=== PATIENT | female | born 1985 | race Caucasian/White ===

== ENCOUNTER → 2017-02-01 00:31 | Observation (INO) ==
[2017-01-31 23:43] LABS: Bilirubin,Urine Small (Negative); Blood,Urine Negative (Negative); Clarity,Urine Cloudy (Clear); Color,Urine Dark Yellow (Yellow); Glucose,Urine (UA) Normal (Normal); Ketones,Urine Negative (Negative); Leukocyte Esterase,Urine Trace (Negative); Nitrite,Urine Negative (Negative); Protein,Urine Negative (Neg-Trace); Specific Gravity,Urine 1.027 (1.010-1.025); Urobilinogen,Urine Normal (Normal)
[2017-01-31 23:45] LABS: Bacteria,Urine Moderate per hpf (None-Few); Hyaline Casts,Urine None Seen per lpf (None-Few); Squamous Epithelial Cell,Urine Many per lpf (None-Few)
[2017-01-31 23:53] LABS: Transitional Epi Cells,Urine Few per hpf (None-Few); Triple Phosphate Crystal,Urine Present
--- NOTE | 2017-02-01 00:44 | OB/GYN History & Physical ---
Date of Encounter: 02/01/17 Time of Encounter: 22:55 Assessment and Plan (1) 35 weeks gestation of Status: Chronic The pt has had a reassuring and reactive FHT and receiving appropriate care. Vitals signs remained within normal limits during hospitalization No Nausea/Vomiting. Able to tolerate liquids History of Present Illness HPI: Ms. Rodriguez is a 31 year old female at 35 weeks and 6 days with an EDC of 03/01/2017 who presents for "tightening" sensation in upper abdomen and concern for movement. She has had care at [facility] with Dr. Heaton. Her has been marked with nausea, vomiting. Pt was diagnosed with pruritic urticarial papules and plaques of at ~25 wga, which resolved with topical steroid treatment. Pt endorses occasional, transient headaches at 6-7/10 relieved by Extra strength Tylenol. Endorses subjective fever prior to admission. She denies any vaginal bleeding. Denies any foul-smelling fluid loss. Her blood type is A+, rubella immune, Varicella IgG Ab positive, GBS will be pending in next scheduled visit this week. Past Med Surg Social Fam HX - Past Medical History Source: patient (Previous Vaginal Delivery at 41 wga. ) Medical history: asthma Psychiatric history: no psych history - Past Surgical History Surgical History: no surgical history - Social History Smoking Status: Former smoker Smokeless Tobacco Status: No Alcohol use: none Drug use: none Obstetrical History - Pregnancies : 2 Para: 1 Term: 1 : 0 Ab's: 0 Livin Medications and Allergies Pnv No.115/Iron Fumarate/FA [ 19 Chewable Tablet] 1 tab PO DAILY [History] Cephalexin [Keflex] 1,000 mg PO BID #20 capsule 02/01/17 [Rx] Allergies No Known Allergies Allergy (Verified 01/31/17 23:13) Review of System OB - Constitutional Constitutional ROS IM: fatigue, weight gain, no anorexia, no chills - Nose, mouth, and throat Nose, mouth and throat: headache(s) - Respiratory Respiratory: dyspnea - Menstruation Menstruation: as per HPI, other - Muscloskeletal Musculoskeletal: back pain - Integumentary Integumentary: pruritus (resolves ), rash, striae Exam - Vital Signs Vital signs: T: 98 BP: 123/77 Pulse 88 RR: 14 - Constitutional Constitutional: well developed, well nourished, no acute distress - HEENT HEENT: EOMI, Normocephaly - Neck Neck exam: full ROM, normal inspection - Lungs Respiratory exam: CTAB - Cardiovascular Cardiovascular exam: RRR - Abdomen Abdomen: Present: bowel sounds normal, gravid. Absent: non tender, diffuse tenderness - Extremities Deep Tendon Reflex Grade: 2+ Normal - Comments Comments: Lower Extremities: Dorsalis pedis palpable and symmetrical bilaterally. No calf tenderness. No pitting edema. Cervical Assessment: Fingertip/T/H, performed by RN Results NST reasurring and reactive. Abnormal lab results Urine Clarity Cloudy (Clear) A 01/31/17 23:30 Ur Specific [place] 1.027 (1.010-1.025) H 01/31/17 23:30 Urine Bilirubin Small (Negative) H 01/31/17 23:30 Ur Leukocyte Esterase Trace (Negative) H 01/31/17 23:30 Urine Microscopic WBC 5-15 per hpf (0-3) H 01/31/17 23:30 Ur Squamous Epith Cells Many per lpf (None-Few) H 01/31/17 23:30 Urine Bacteria Moderate per hpf (None-Few) H 01/31/17 23:30 Ur Culture Indicated? YES (NO) A 01/31/17 23:30 All other labs normal.
--- NOTE | 2017-02-01 01:25 | Discharge Summary ---
Date of Encounter: 02/01/17 Time of Encounter: 12:29 - Discharge Diagnosis (1) 35 weeks gestation of Priority: Primary Status: Chronic Comments: NST reassuring and reactive Cervical assessment performed by RN: F/T/H Pt able to tolerate fluids while in admit, no N/V Repeat Vitals within normal limits (2) UTI (urinary tract infection) during Priority: Primary Status: Acute Comments: Urinalysis indicative of relative dehydration Pt received extensive counseling on importance of keeping hydrated Verbally confirmed understanding. Stated she would increase water intake +LE. Triple phosphate crystals may be normal but may also indicate of UTI, beatrice Proteus species Pt on Kephelex Qualifiers: Trimester: third trimester Qualified Code(s): O23.43 - Unspecified infection of urinary tract in , third trimester - Discharge Medications Prescriptions: Cephalexin [Keflex] 1,000 mg PO BID #20 capsule Home Medications: Pnv No.115/Iron Fumarate/FA [ 19 Chewable Tablet] 1 tab PO DAILY [History] Cephalexin [Keflex] 1,000 mg PO BID #20 capsule 02/01/17 [Rx] Allergies/Adverse Reactions: Allergies No Known Allergies Allergy (Verified 01/31/17 23:13) Data Procedures and tests throughout hospitalization: Laboratory Tests 01/31/17 23:30 Urine Color Dark Yellow Urine Clarity Cloudy A Urine pH 6.0 Ur Specific [place] 1.027 H Urine Protein Negative Urine Glucose (UA) Normal Urine Ketones Negative Urine Blood Negative Urine Nitrite Negative Urine Bilirubin Small H Urine Urobilinogen Normal Ur Leukocyte Esterase Trace H Urine Microscopic WBC 5-15 H Ur Squamous Epith Cells Many H Ur Transition Epith Cell Few Triple Phos Crystals Present Urine Bacteria Moderate H Hyaline Casts None Seen Ur Culture Indicated? YES A Labs on day of discharge: Labs from last 24 hours 01/31/17 23:30 Urine Color Dark Yellow Urine Clarity Cloudy A Urine pH 6.0 Ur Specific [place] 1.027 H Urine Protein Negative Urine Glucose (UA) Normal Urine Ketones Negative Urine Blood Negative Urine Nitrite Negative Urine Bilirubin Small H Urine Urobilinogen Normal Ur Leukocyte Esterase Trace H Urine Microscopic WBC 5-15 H Ur Squamous Epith Cells Many H Ur Transition Epith Cell Few Triple Phos Crystals Present Urine Bacteria Moderate H Hyaline Casts None Seen Ur Culture Indicated? YES A Date of admission: 01/31/17 22:51 Primary care physician: PCP NO Discharging clinician: Veronica Pinedo Anticipated date of discharge: 02/01/17 - Patient Status Disposition: Home, Self-Care Condition: Good Overall status at discharge: other - Discharge Instructions Follow Up With: NO,PCP [Primary Care Provider] - Additional Instructions: LABOR AND DELIVERY DISCHARGE INSTRUCTIONS Signs and Symptoms to be Reported to your Doctor Immediately: * Sudden gush, continuous or intermittent lead of fluid from vagina (note the time of gush and color of fluid) * Onset of bright red vaginal bleeding with or without pain (if you had a vaginal exam during this visit you may notice some dark red spotting. This is normal.) * Lower abdominal cramping or backache that is premenstrual-like feeling. * More than 6 contractions in one hour. * Burning during urination, having to urinate more frequently or pain in your mid-back. * A change in the baby's activity. This could be an increase or decrease in activity. * Severe headache which does not go away with tylenol. * Sudden swelling in the face, hands, arms and/or legs. * Upper abdominal pain - sometimes associated with heartburn or nausea and is not relieved by Maalox, Mylanta or Tums. * Dizziness or blurred vision or visual disturbances (seeing stars/lights). * Kick Counts One hour after a meal, lay down on one side in a quiet place. Count the number of geoffrey the baby moves during an hour. If less than 6 movements, notify your physician. Diet: *Force fluids - 8-10 tall glasses of fluid per day. May include popsicles and jello. 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 NST reactive and reassuring. Time Attestation: Total time spent providing and/or coordinating discharge services: Time Spent: Greater than 30 minutes Specific discharge activities: Kick count, Labor warnings Exam - Constitutional Vitals: T: 98.3 BP: 129/72 Pulse: 87 General appearance IM: cooperative, A&O X 3, pleasant - Respiratory Respiratory exam: Present: CTAB. Absent: accessory muscle use, chest wall tenderness, wheezes - Cardiovascular Cardiovascular exam IM: Present: RRR - GI/Abdominal GI/Abdominal exam IM: soft, no peritoneal signs Additional comments: Evenly distributed Erythematous papules. [place] monitor in place. - Rectal Rectal exam: deferred - Extremities Exam Extremities exam IM: Present: normal inspection. Absent: mottling - Neurological Exam Neurological exam: alert, oriented X3 - VTE Reasons for not Prescribing Prophylaxis: Treatment not Indicated - Low risk for VTE - Attending Attestation I examined this patient and my medical decision-making was reviewed with the HEEL SLUGGER/PA/Advanced Practice Nurse/Resident Physician. I agree with the documented findings, disposition and treatment plan as described except to the extent set forth below.
== END | disposition home or self-care (01) ==
LOC: 1NENULAB
PROVIDERS: ADMIT Obstetrics & Gynecology; ATTEND Obstetrics & Gynecology

== ENCOUNTER 2017-02-23 09:34 | Inpatient (IN) ==
[2017-02-23] MEDS ORDERED: Famotidine 20 MG/2 ML VIAL IVP PRN (09:46)
[2017-02-23] MEDS ORDERED: Ondansetron 4 MG/2 ML VIAL IVP PRN (09:46)
[2017-02-23] MEDS ORDERED: Metoclopramide 10 MG/2 ML VIAL IVP PRN (09:46)
[2017-02-23] MEDS ORDERED: Naloxone 0.4 MG/ML INJ IVP PRN (09:46)
[2017-02-23] MEDS ORDERED: Ringers Solution, Lactated 1,000 ML IVC SCH (10:00)
[2017-02-23 10:19] LABS: Basophils % 0.1 %; Eosinophils # 0.1 K/mcL (0.0-0.6); Eosinophils % 0.8 %; Hematocrit 35.4 % (35.3-44.9); Hemoglobin 12.2 g/dL (11.5-15.4); Immature Granulocytes % 0.3 % (0-4); Lymphocytes # 1.5 K/mcL (0.6-4.6); Lymphocytes % 20.9 %; Mean Corpuscular HGB Conc 34.5 g/dL (31.6-35.5); Mean Corpuscular Hemoglobin 33.1 pg (28.0-33.3); Mean Corpuscular Volume 95.9 fL (83.0-100.0); Mean Platelet Volume 9.5 fL (9.4-12.4); Monocytes # 0.4 K/mcL (0.0-1.3); Monocytes % 5.3 %; Neutrophils # 5.4 K/mcL (1.6-8.9); Platelet Count 239 K/mcL (140-400); Red Blood Count 3.69 M/mcL (3.82-4.97); Red Cell Distribution Width 13.1 % (11.5-14.5); Segmented Neutrophils % 72.6 %
[2017-02-23] MEDS ORDERED: miSOPROStol 100 MCG TABLET PO STA (10:39)
--- NOTE | 2017-02-23 10:58 | Anesthesia Evaluation PreOp ---
Date of Encounter: 02/23/17 Time of Encounter: 10:56 - Past History Planned Operation: madelyn Cardiac History: Denies any Significant Hx Pulmonary History: Asthma RIVET SPINNER History: Denies Any Significant HX Other Medical History: GERD Anesthesia History: No Prior Anesthetic Complications, Past Anesthesia (madelyn), Problems (negative) : Yes Alcohol Use: none Drug use: none Medications and Allergies Pnv No.115/Iron Fumarate/FA [ 19 Chewable Tablet] 1 tab PO DAILY [History] Allergies No Known Allergies Allergy (Verified 01/31/17 23:13) - Meds/Allergy Pre-op Review Medications Reviewed: Yes Allergies Reviewed: Yes Beta Blockers on Current Med List: No Anesthesia Results - Labs 02/23/17 10:14 Anesthesia Exam 117/76 104 16 fht 141 Height: 5'1" Weight: 96 kg Pain Scale: 2 Pain Scale Used: Numeric (1 - 10) - HEENT Pupil (Motor): Pupils equal Mallampati: II Oral Opening: Greater than 3 - RIVET SPINNER LOC: Oriented RIVET SPINNER Motor: Normal RUE, Normal LUE, Normal RLE, Normal LLE, Normal Face RIVET SPINNER Sensory: Normal: RUE, LUE, RLE, LLE, Face - Cardiac Rhythm: Regular Murmur: None - Pulmonary Breath Sounds: bilateral Clear Respiratory Effort: Symmetrical Anesthesia Assess/Plan ASA Score: 2 Modified Boyers Scale for Level of Consciousness: Cooperative, oriented, and tranquil Anesthetic Plan: Regional Autologous Blood: No Monitoring Plan: Standard Monitors Recovery Plan: Other (MADELYN risks discussed, questions answered, consented)
--- NOTE | 2017-02-23 13:59 | OB/GYN History & Physical ---
Date of Encounter: 02/23/17 Time of Encounter: 13:53 Assessment and Plan (1) Elective induction of labor planned Current visit: Yes Status: Acute oral cytotec nubain prn epidural if desired anticipate vaginal delivery (2) 39 weeks gestation of Current visit: Yes Status: Acute History of Present Illness Chief complaint: induction of labor HPI: Ms. Rodriguez is a 31 year old female at 39.1 weeks of labor here today for elective induction of labor. She has had no complications. Denies vaginal bleeding, loss of fluid, blurred vision, headache, diarrhea, constipation. She has had nausea and emesis on and off throughout her ; last emesis this morning. Labs: negative: GBS, Hep B, HIV, syphilis immune: Rubella, VZV Past Med Surg Social Fam HX - Past Medical History Medical history: asthma Psychiatric history: no psych history - Past Surgical History Surgical History: no surgical history - Social History Smoking Status: Never smoker Smokeless Tobacco Status: No Alcohol use: none Drug use: none - Family History Mother Living Status: Still Living Hx Family Cardiac Disorders: No Hx Family Respiratory Disorders: No Hx Family Cancer: No Hx Family GI Disorders: No Hx Family Genitourinary Disorders: No Hx Family Endocrine Disorder: No Hx Family Musculoskeletal Disorders: No Hx Family Neuromuscular Disorders: No Hx Family Neurologic Disorders: No Hx Family HEENT Disorders: No Hx Family Autoimmune Disorders: No Hx Family Reproductive Disorders: No Hx Family Psychosocial Disorders: No Hx Family Medical Disorders: No Obstetrical History - Pregnancies : 2 Para: 1 Term: 0 : 0 Ab's: 0 Livin Medications and Allergies Pnv No.115/Iron Fumarate/FA [ 19 Chewable Tablet] 1 tab PO DAILY [History] Allergies No Known Allergies Allergy (Verified 01/31/17 23:13) Review of System OB - Constitutional Constitutional ROS IM: as per HPI Exam - Constitutional Constitutional: well developed, well nourished, no acute distress, average body habitus - HEENT HEENT: Normocephaly, Mucus Membranes Moist - Neck Neck exam: normal inspection - Lungs Respiratory exam: CTAB - Cardiovascular Cardiovascular exam: RRR, +S1, +S2 - Abdomen Abdomen: Present: bowel sounds normal, gravid, non tender - Extremities Extremities exam: normal capillary refill, pedal edema (1+), warm Results Result Diagrams: 02/23/17 10:14 Abnormal lab results RBC 3.69 M/mcL (3.82-4.97) L 02/23/17 10:14 All other labs normal. - VTE Reasons for not Prescribing Prophylaxis: Treatment not Indicated - Low risk for VTE
[2017-02-23] MEDS ORDERED: Oxytocin 20 units/ LR 1000 mL 20 UNIT/1,000 ML BAG IVC SCH (15:45)
--- NOTE | 2017-02-23 17:35 | OB Labor Progress Note ---
Date of Encounter: 02/23/17 Time of Encounter: 17:33 Labor Progress Note - Subjective Subjective: Patient in bed, discussed POC with patient. Patient denies any questions or concerns. - Cervix Cervix: 3/60/-2 - Heart Tones Heart Tones: 125 bpm moderate variability +15x15 accels no decels noted. - [place]: 2-3 min apart - Interventions Interventions: SVE, AROM small amount of clear fluid. Patient tolerated well. - Plan Plan: Continue labor management
[2017-02-23] MEDS ORDERED: *HR* Nalbuphine 20 MG/ML AMPUL IVP PRN (17:52)
[2017-02-23] MEDS ORDERED: *HR* Ropivacaine/PF 0.2% 10 ML AMPUL EP ONE (22:08)
[2017-02-23] MEDS ORDERED: *HR* FentaNYL (PF) 100 MCG/2 ML VIAL EP ONE (22:08)
[2017-02-23] MEDS ORDERED: *HR* Ropivacaine/PF 0.2% 10 ML AMPUL ONE (22:11)
[2017-02-23] MEDS ORDERED: *HR* FentaNYL (PF) 100 MCG/2 ML VIAL ONE (22:11)
[2017-02-23] MEDS ORDERED: Epidural Premix (fent/bupiv) 110 ML EP ONE (22:12)
[2017-02-23] MEDS ORDERED: Epidural Premix (fent/bupiv) 110 ML EP SCH (22:15)
--- NOTE | 2017-02-23 22:38 | Anesthesia Procedures ---
Date of Encounter: 02/23/17 Time of Encounter: 22:36 Procedures: Anesthesia - Epidural/Spinal Patient examined: Yes OB Eval: Gestational age: 39 OB Eval: : 2 OB Eval: Hx Para: 1 OB Eval: Dilated at (cm): 3 OB Eval: Contractions: Non-stressed pattern Consent Obtained: Yes Supplemental Oxygen: None/Room Air Site Prep: Aseptic Technique, Sterile prep and drape, 0.5% Chlorhexidine/Alcohol Patient position: upright Local Anesthetic: Lidocaine 1% Amount of Local Anesthetic used: 3 Touhy Needle Gauge: 18 Touhy Needle Depth (cm): 8 Catheter Depth at Skin (cm): 15 Test Dose (1.5% Lido + Epi): Volume given (mls): 3 Test Dose Result: Negative Loading Dose: Fentanyl (mcg): 100 Loading Dose: Other: ropivicaine 0.2% 10cc Loading Dose Administered: Thru Touhy Needle Infusion Med: 0.125% Bupivacaine w/ 2 mcg/ml Fentanyl Infusion Rate (mls/hr): 14 (PCEA 5 cc q30") Catheter Secured in Place: Tegaderm Interspace Used: L2-L3 Loss of Resistance (JENNY): Yes Blood: No CSF: No Paresthesia: No Procedure: aseptic tech, tolerated well, effective Vitals + FHT's: 120/75 88 16 fht 124
--- NOTE | 2017-02-23 23:46 | OB Labor Progress Note ---
Date of Encounter: 02/23/17 Time of Encounter: 23:44 Labor Progress Note - Subjective Subjective: Called to patient's room for IUPC placement. Discussed POC with patient. Patient denies any questions or concerns. - Cervix Cervix: 7/100/-1 - Heart Tones Heart Tones: 130 bpm moderate variability. + 15x15 accels and variables noted. - [place]: 3-3.5 min apart - Interventions Interventions: SVE, IUPC placed without difficulty. Patient tolerated well. Patient repositioned. - Plan Plan: Continue labor management.
--- NOTE | 2017-02-24 02:43 | OB/GYN Procedure Note ---
Delivery - Delivery Date: 02/24/17 Provider: Raad Dodson Intrapartum events: none Delivery induction: misoprostol Delivery monitor: internal FHT, internal uterine Anesthesia: epidural Estimated Blood Loss: 100 - (s) Infant A Infant Delivery Date: 02/24/17 Infant Delivery Time: 02:20 Presentation: vertex Position: OA Route of delivery: Gender: Male Viability: Viable Pounds: 6 Ounces: 4 at 1 minute: 8 at 5 mins: 9 Shoulder Dystocia: not encountered Specimens collected: cord blood Placenta: spontaneous Cord: 3 umbilical vessels - Repair Laceration Description: Perineal - 1st Degree - Complications Delivery complications: none - Disposition Mom disposition: stable in LDR disposition: stable in LDR - Comments Comments: Patient status post normal spontaneous vaginal delivery of liveborn male from occiput anterior presentation without difficulty there was no nuchal cord. Spontaneous delivery of a normal placenta with three-vessel cord. There is first-degree laceration repaired with 3-0 Vicryl under epidural anesthesia. All sponge and instruments counts are correct patient was taken recovery in good condition
[2017-02-24] MEDS ORDERED: Measles/Mumps/Rubella Vacc 0.5 ML VIAL SQ PRN (04:07)
[2017-02-24] MEDS ORDERED: Oxytocin 20 units/ LR 1000 mL 20 UNIT/1,000 ML BAG IVC SCH (04:07)
[2017-02-24] MEDS ORDERED: Rho Immune Globulin 1,500 UNIT SYRINGE IM PRN (04:07)
[2017-02-24] MEDS: Ibuprofen 600 MG TABLET PO PRN ×3 (06:12→20:43)
[2017-02-24] MEDS: Prenatal Vit/FA 1 EACH TABLET PO SCH (08:51)
[2017-02-24] MEDS: Acetaminophen 325 MG TABLET PO PRN ×2 (08:51→17:07)
[2017-02-25] MEDS: Ibuprofen 600 MG TABLET PO PRN (04:28)
[2017-02-25 05:51] LABS: Basophils % 0.2 %; Eosinophils # 0.1 K/mcL (0.0-0.6); Eosinophils % 1.6 %; Hematocrit 31.7 % (35.3-44.9); Immature Granulocytes % 0.3 % (0-4); Lymphocytes # 2.7 K/mcL (0.6-4.6); Lymphocytes % 30.3 %; Mean Corpuscular HGB Conc 33.4 g/dL (31.6-35.5); Mean Corpuscular Hemoglobin 33.3 pg (28.0-33.3); Mean Corpuscular Volume 99.7 fL (83.0-100.0); Mean Platelet Volume 9.8 fL (9.4-12.4); Monocytes # 0.8 K/mcL (0.0-1.3); Monocytes % 8.7 %; Neutrophils # 5.2 K/mcL (1.6-8.9); Platelet Count 179 K/mcL (140-400); Red Blood Count 3.18 M/mcL (3.82-4.97); Red Cell Distribution Width 13.4 % (11.5-14.5); Segmented Neutrophils % 58.9 %
[2017-02-25 05:58] LABS: Hemoglobin 10.6 g/dL (11.5-15.4)
[2017-02-25] MEDS: Prenatal Vit/FA 1 EACH TABLET PO SCH (08:45)
[2017-02-25] MEDS: Acetaminophen 325 MG TABLET PO PRN (08:47)
[2017-02-25 08:53] VITALS: BP 121/87
--- NOTE | 2017-02-25 09:21 | Discharge Summary ---
Date of Encounter: 02/25/17 Time of Encounter: 09:19 - Discharge Diagnosis (1) Vaginal delivery Priority: Primary Status: Acute Comments: meeting all milestones, bottle feeding, pain well managed on po pain medication desires discharge. (2) Anemia, Priority: Primary Status: Acute - Discharge Medications Prescriptions: Ibuprofen [Motrin] 600 mg PO Q6HR PRN #60 tab PRN Reason: Cramping Docusate [Colace] 100 mg PO BID #60 Ferrous Sulfate 325 mg PO DAILY #60 tab Home Medications: Pnv No.115/Iron Fumarate/FA [ 19 Chewable Tablet] 1 tab PO DAILY [History] Acetaminophen [Tylenol] 650 mg PO Q6HR PRN tab 02/25/17 [Rx] Docusate [Colace] 100 mg PO BID #60 02/25/17 [Rx] Ferrous Sulfate 325 mg PO DAILY #60 tab 02/25/17 [Rx] Ibuprofen [Motrin] 600 mg PO Q6HR PRN #60 tab 02/25/17 [Rx] Vit/FA 1 each PO DAILY tab 02/25/17 [Rx] Allergies/Adverse Reactions: Allergies No Known Allergies Allergy (Verified 01/31/17 23:13) Data Procedures and tests throughout hospitalization: Laboratory Tests 02/23/17 02/25/17 10:14 05:35 WBC 7.4 8.8 RBC 3.69 L 3.18 L Hgb 12.2 10.6 L D Hct 35.4 31.7 L MCV 95.9 99.7 MCH 33.1 33.3 MCHC 34.5 33.4 RDW 13.1 13.4 Plt Count 239 179 MPV 9.5 9.8 Immature Gran % 0.3 0.3 Seg Neutrophils % 72.6 58.9 Lymphocytes % 20.9 30.3 Monocytes % 5.3 8.7 Eosinophils % 0.8 1.6 Basophils % 0.1 0.2 Neutrophils # 5.4 5.2 Lymphocytes # 1.5 2.7 Monocytes # 0.4 0.8 Eosinophils # 0.1 0.1 Basophils # 0.0 0.0 Labs on day of discharge: Labs from last 24 hours 02/25/17 05:35 WBC 8.8 RBC 3.18 L Hgb 10.6 L D Hct 31.7 L MCV 99.7 MCH 33.3 MCHC 33.4 RDW 13.4 Plt Count 179 MPV 9.8 Immature Gran % 0.3 Seg Neutrophils % 58.9 Lymphocytes % 30.3 Monocytes % 8.7 Eosinophils % 1.6 Basophils % 0.2 Neutrophils # 5.2 Lymphocytes # 2.7 Monocytes # 0.8 Eosinophils # 0.1 Basophils # 0.0 Date of admission: 02/23/17 09:34 Primary care physician: PCP NONE Consults: 02/24/17 04:07 Consult to Well Drill Operator Rotary Drill [CONS] Routine Comment: Vaginal delivery, consult needed Discharging clinician: Sophia Flores Anticipated date of discharge: 02/25/17 - Patient Status Disposition: Home, Self-Care Condition: Good Overall status at discharge: patient is back to baseline - Discharge Instructions Instructions: Anemia (GEN) Follow Up With: NONE,PCP [Primary Care Provider] - Raad Dodson MD [Partnered Physician] - - Diet and Activity Activity: resume usual activities as tolerated Diet: regular diet Hospital Course Reason for admission: induction of labor, IUP at term Delivery: Episiotomy: none Laceration: 1st degree Other procedures: none complications: none Discharge diagnosis: IUP at term delivered [place] baby: male Hospital course: Delivery - Delivery Date: 02/24/17 Provider: Raad Dodson Intrapartum events: none Delivery induction: misoprostol Delivery monitor: internal FHT, internal uterine Anesthesia: epidural Estimated Blood Loss: 100 - Infant (s) Infant A Delivery Date: 02/24/17 Delivery Time: 02:20 Presentation: vertex Position: OA Route of delivery: Gender: Male Viability: Viable Pounds: 6 Ounces: 4 at 1 minute: 8 at 5 mins: 9 Shoulder Dystocia: not encountered Specimens collected: cord blood Placenta: spontaneous Cord: 3 umbilical vessels - Repair Laceration Description: Perineal - 1st Degree - Complications Delivery complications: none - Disposition Mom disposition: stable in PP and appropriate for discharge Time Attestation: Total time spent providing and/or coordinating discharge services: Time Spent: Less than 30 minutes Exam - Constitutional Vitals: Temp Pulse Resp BP Pulse Ox 97.8 F 70 12 121/87 99 02/25/17 08:51 02/25/17 08:51 02/25/17 08:54 02/25/17 08:51 02/25/17 08:51 General appearance IM: A&O X 3 - Respiratory Respiratory exam: Present: CTAB - Cardiovascular Cardiovascular exam IM: Present: RRR - GI/Abdominal GI/Abdominal exam IM: normal bowel sounds - Uterine Tone: Firm Uterus Position: At Umbilicus, Midline - Extremities Exam Extremities exam IM: Present: normal capillary refill, normal inspection - Neurological Exam Neurological exam: normal gait, oriented X3 - Psychiatric Additional comments: reports good mood.
== END 2017-02-25 14:30 | disposition home or self-care (01) | DRG 775 ==
LOC: 1NENULAB 09:34 → UNDODISIN 10:49 → 1NENUOBS 02-24 06:20
PROVIDERS: ADMIT Obstetrics & Gynecology; ATTEND Obstetrics & Gynecology

== ENCOUNTER 2018-08-14 15:11 | Inpatient (IN) ==
[2018-08-14 15:28] LABS: Bilirubin,Urine Small (Negative); Blood,Urine Negative (Negative); Clarity,Urine Cloudy (Clear); Color,Urine Dark Yellow (Yellow); Glucose,Urine (UA) Normal (Normal); Ketones,Urine Trace mg/dL (Negative); Leukocyte Esterase,Urine Moderate (Negative); Nitrite,Urine Negative (Negative); Protein,Urine 30 mg/dL (Neg-Trace); Specific Gravity,Urine 1.026 (1.010-1.025); Urobilinogen,Urine Normal (Normal)
[2018-08-14 15:30] LABS: Bacteria,Urine Many per hpf (None-Few); Hyaline Casts,Urine Few per lpf (None-Few); RBC,Urine 0-3 per hpf (0-3); Squamous Epithelial Cell,Urine Many per lpf (None-Few); WBC,Urine 30-50 per hpf (0-3)
[2018-08-14 15:50] LABS: Amphetamine Screen,Urine Negative ng/mL (Cutoff=1000); Barbiturate Screen,Urine Negative ng/mL (Cutoff=200); Benzodiazepines Screen,Urine Negative ng/mL (Cutoff=200); Calcium Oxalate Crystals,Urine Present; Cannabinoid Screen,Urine Negative ng/mL (Cutoff = 50); Cocaine Screen,Urine Negative ng/mL (Cutoff= 300); Opiate Screen,Urine Negative ng/mL (Cutoff=300); Phencyclidine Screen,Urine Negative ng/mL (Cutoff=25)
[2018-08-14] MEDS ORDERED: *HR* Nalbuphine 10 MG/ML AMPUL IVP PRN (16:13)
[2018-08-14] MEDS ORDERED: Famotidine 20 MG/2 ML VIAL IVP PRN (16:13)
[2018-08-14] MEDS ORDERED: Naloxone 0.4 MG/ML INJ IVP PRN (16:13)
[2018-08-14 16:40] LABS: Basophils % 0.2 %; Eosinophils % 0.5 %; Hematocrit 36.3 % (35.3-44.9); Hemoglobin 12.6 g/dL (11.5-15.4); Immature Granulocytes % 0.2 % (0-4); Lymphocytes # 1.7 K/mcL (0.6-4.6); Lymphocytes % 20.2 %; Mean Corpuscular HGB Conc 34.7 g/dL (31.6-35.5); Mean Corpuscular Hemoglobin 33.6 pg (28.0-33.3); Mean Corpuscular Volume 96.8 fL (83.0-100.0); Monocytes # 0.6 K/mcL (0.0-1.3); Monocytes % 7.5 %; Neutrophils # 5.9 K/mcL (1.6-8.9); Platelet Count 283 K/mcL (140-400); Red Blood Count 3.75 M/mcL (3.82-4.97); Red Cell Distribution Width 13.1 % (11.5-14.5); Segmented Neutrophils % 71.4 %
--- NOTE | 2018-08-14 17:01 | OB Labor Progress Note ---
Date of Encounter: 08/14/18 Time of Encounter: 17:00 Labor Progress Note - Subjective Subjective: Uc's getting stronger. - Vital Signs Vital Signs: AF/VSS - Cervix Cervix: 2-3/70/-2 - Heart Tones Heart Tones: RNST - Interventions Interventions: AAROM kary amount of fluid - Plan Plan: Expect NSVSD.
--- NOTE | 2018-08-14 17:05 | OB/GYN History & Physical ---
Date of Encounter: 08/14/18 Time of Encounter: 17:03 Assessment and Plan (1) Gestational diabetes Current visit: Yes Status: Acute Pt with excellent BS control. Recent EFWT and GRAZYNA were 50%. Qualifiers: Gestational diabetes mellitus control: diet-controlled Trimester: third trimester Qualified Code(s): O24.410 - Gestational diabetes mellitus in , diet controlled (2) 39 weeks gestation of Current visit: No Status: Acute Pt presents at 39 w 1 d gest with c/o uc's and has made cervical change. Will admit to labor and delivery and expect . History of Present Illness Chief complaint: contractions HPI: Ms. Rodriguez is a 32 year old female female at 39w1d presents with c/o labor pains. She denies vb or lof. complicated by gest DM based on failed 3hr GTT by one point. She had gest DM with last preg. All of her BS are normal. Past Med Surg Social Fam HX - Past Medical History Source: patient Medical history: asthma Psychiatric history: anxiety, depression - Past Surgical History Surgical History: no surgical history - Social History Smoking Status: Never smoker Smokeless Tobacco Status: No Alcohol use: none Drug use: none - Family History Mother Living Status: Still Living Hx Family Cardiac Disorders: No Hx Family Respiratory Disorders: No Hx Family Cancer: No Hx Family GI Disorders: No Hx Family Endocrine Disorder: Yes (DM) Hx Family Neuromuscular Disorders: No Hx Family Neurologic Disorders: Yes (stroke) Hx Family HEENT Disorders: No Hx Family Autoimmune Disorders: No Obstetrical History - Pregnancies : 3 Para: 2 Medications and Allergies Vit/FA 1 each PO DAILY tab 02/25/17 [Rx] Allergy/AdvReac Type Severity Reaction Status Date / Time No Known Allergies Allergy Verified 06/19/18 18:57 Exam - Constitutional Constitutional: well developed, well nourished - HEENT HEENT: EOMI, PERRL - Neck Neck exam: full ROM - Lungs Respiratory exam: CTAB - Cardiovascular Cardiovascular exam: RRR - Abdomen Abdomen: Present: gravid - Extremities Extremities exam: full ROM Deep Tendon Reflex Grade: 2+ Normal - Cervix Dilation: 3 Effacement: 70 Station: -2 Results Result Diagrams: 08/14/18 16:18 Abnormal lab results RBC 3.75 M/mcL (3.82-4.97) L 08/14/18 16:18 MCH 33.6 pg (28.0-33.3) H 08/14/18 16:18 Urine Clarity Cloudy (Clear) A 08/14/18 15:23 Ur Specific [place] 1.026 (1.010-1.025) H 08/14/18 15:23 Urine Protein 30 mg/dL (Neg-Trace) H 08/14/18 15:23 Urine Ketones Trace mg/dL (Negative) H 08/14/18 15:23 Urine Bilirubin Small (Negative) H 08/14/18 15:23 Ur Leukocyte Esterase Moderate (Negative) H 08/14/18 15:23 Urine Microscopic WBC 30-50 per hpf (0-3) H 08/14/18 15:23 Ur Squamous Epith Cells Many per lpf (None-Few) H 08/14/18 15:23 Urine Bacteria Many per hpf (None-Few) H 08/14/18 15:23 Ur Culture Indicated? NO. (NO) A 08/14/18 15:23 All other labs normal. - VTE Reasons for not Prescribing Prophylaxis: Treatment not Indicated - Low risk for VTE
[2018-08-14] MEDS ORDERED: Penicillin G Potassium 5,000,000 UNIT in 0.9 % Sodium Chloride Mini Bag 100 ML IVPB ONE (17:55)
[2018-08-14] MEDS: Ringers Solution, Lactated 1,000 ML IVC SCH (18:05)
[2018-08-14] MEDS ORDERED: Bupivacaine-MPF 0.25% 10 ML VIAL EP ONE (20:06)
[2018-08-14] MEDS ORDERED: *HR* FentaNYL (PF) 100 MCG/2 ML VIAL EP ONE (20:06)
[2018-08-14] MEDS ORDERED: Bupivacaine-MPF 0.25% 10 ML VIAL ONE (20:07)
[2018-08-14] MEDS ORDERED: *HR* FentaNYL (PF) 100 MCG/2 ML VIAL ONE (20:07)
[2018-08-14] MEDS ORDERED: Lidocaine -MPF 1% 5 ML AMPUL ONE (20:07)
[2018-08-14] MEDS ORDERED: Epidural Premix (fent/bupiv) 110 ML EP SCH (20:15)
--- NOTE | 2018-08-14 20:41 | Anesthesia Evaluation PreOp ---
Date of Encounter: 08/14/18 Time of Encounter: 20:39 - Past History Planned Operation: CHANTEL Cardiac History: Denies any Significant Hx Pulmonary History: Asthma (well controlled) CORRECTIONS CORPORAL History: Denies Any Significant HX Other Medical History: Denies Any Significant HX, Other (morbid obesity) Anesthesia History: No Prior Anesthetic Complications (CHANTEL x 2--no issues; never had GA; denies family h/o GA complications) : Yes Alcohol Use: none Drug use: none Medications and Allergies Vit/FA 1 each PO DAILY tab 02/25/17 [Rx] Allergy/AdvReac Type Severity Reaction Status Date / Time No Known Allergies Allergy Verified 06/19/18 18:57 - Meds/Allergy Pre-op Review Medications Reviewed: Yes Allergies Reviewed: Yes Beta Blockers on Current Med List: No Anesthesia Results - Labs 08/14/18 16:18 Anesthesia Exam 120/56, HR 76, RR 22 O2 Sat Height 1.57 m Weight 99.9 kg NPO (# of Hours): solids > 8hrs Pain Scale: 8 Pain Scale Used: Bed[place]-Harman (Faces) - HEENT Pupil (Motor): Pupils equal Mallampati: III Teeth: Normal Oral Opening: Greater than 3 - CORRECTIONS CORPORAL LOC: Oriented CORRECTIONS CORPORAL Motor: Normal RUE, Normal LUE, Normal RLE, Normal LLE, Normal Face CORRECTIONS CORPORAL Sensory: Normal: RUE, LUE, RLE, LLE, Face - Cardiac Rhythm: Regular Murmur: None - Pulmonary Breath Sounds: bilateral Clear Respiratory Effort: Symmetrical Anesthesia Assess/Plan ASA Score: 3 (BMI >40, asthma) Level of consciousness: Cooperative, Oriented, Restless Anesthetic Plan: Epidural Autologous Blood: No Monitoring Plan: Standard Monitors Recovery Plan: Other
--- NOTE | 2018-08-14 20:44 | Anesthesia Procedures ---
Date of Encounter: 08/14/18 Time of Encounter: 20:09 Procedures: Anesthesia - Epidural/Spinal Patient ID/Chart reviewed: Yes Patient examined: Yes OB Eval: Gestational age: 39 weeks 1 day OB Eval: : 3 OB Eval: Hx Para: 2 OB Eval: Contractions: Non-stressed pattern Consent Obtained: Yes Supplemental Oxygen: None/Room Air Site Prep: Aseptic Technique, Sterile prep and drape, Povidone-Iodine 1% Patient position: upright Local Anesthetic: Lidocaine 1% Amount of Local Anesthetic used: 3 Touhy Needle Gauge: 18 Touhy Needle Depth (cm): 6 Catheter Depth at Skin (cm): 11 Test Dose (1.5% Lido + Epi): Volume given (mls): 5 Test Dose Result: Negative Loading Dose: Fentanyl (mcg): 100 Loading Dose Administered: Thru Catheter Infusion Med: 0.125% Bupivacaine w/ 2 mcg/ml Fentanyl Infusion Rate (mls/hr): 12 (w/ demand bolus of 5mL q30min PRN) Catheter Secured in Place: Tegaderm, Tape Interspace Used: L3-L4 Loss of Resistance (JENNY): Yes Blood: No CSF: No Paresthesia: No Procedure: successful on 1st attempt; patient tolerated procedure well; VSS Vitals + FHT's: please see electronic records for VS entry
[2018-08-14] MEDS ORDERED: Oxytocin 20 units/ LR 1000 mL 20 UNIT/1,000 ML BAG IVC SCH ×2 (21:15→23:45)
[2018-08-14] MEDS ORDERED: Penicillin G Potassium 2,500,000 UNIT in 0.9 % Sodium Chloride 100 ML IVPB SCH (22:00)
[2018-08-14] MEDS ORDERED: Ibuprofen 600 MG TABLET PO PRN (23:55)
[2018-08-14] MEDS ORDERED: Acetaminophen 325 MG TABLET PO PRN (23:55)
--- NOTE | 2018-08-15 00:12 | OB/GYN Procedure Note ---
Delivery - Delivery Date: 08/15/18 Provider: Raad Dodson Intrapartum events: none Delivery augmentation: rupture of membranes Delivery monitor: external uterine, internal uterine Anesthesia: epidural Quantitated Blood Loss: 50 - Infant (s) A Infant Delivery Date: 08/14/18 Delivery Time: 23:44 Presentation: vertex Position: BRENDEN Route of delivery: Gender: Female Viability: Viable Pounds: 7 Ounces: 0 at 1 minute: 8 at 5 mins: 9 Shoulder Dystocia: not encountered Specimens collected: cord blood Placenta: spontaneous Cord: 3 umbilical vessels, nuchal reduced - Repair Episiotomy: none - Complications Delivery complications: none - Disposition Mom disposition: stable in LDR [place] disposition: stable in LDR - Comments Comments: Pt s/p of liveborn female infant over intact perineum. Spont delivery of normal placenta with 3 v.c. EBL 50 cc. Mother and recovered in LDR. There was a tight nuchal cord reduced prior to delivery of the shoulders.
[2018-08-15] MEDS ORDERED: Acetaminophen 325 MG TABLET PO PRN ×2 (02:45→13:41)
[2018-08-15] MEDS ORDERED: Oxytocin 20 units/ LR 1000 mL 20 UNIT/1,000 ML BAG IVC SCH (02:45)
[2018-08-15] MEDS: Ibuprofen 600 MG TABLET PO PRN ×3 (03:30→15:55)
[2018-08-15 06:26] LABS: Basophils % 0.2 %; Eosinophils % 0.3 %; Hematocrit 34.4 % (35.3-44.9); Hemoglobin 12.1 g/dL (11.5-15.4); Immature Granulocytes % 0.3 % (0-4); Lymphocytes # 1.9 K/mcL (0.6-4.6); Lymphocytes % 16.6 %; Mean Corpuscular HGB Conc 35.2 g/dL (31.6-35.5); Mean Corpuscular Hemoglobin 33.6 pg (28.0-33.3); Mean Corpuscular Volume 95.6 fL (83.0-100.0); Mean Platelet Volume 10.2 fL (9.4-12.4); Monocytes # 0.8 K/mcL (0.0-1.3); Monocytes % 6.8 %; Neutrophils # 8.9 K/mcL (1.6-8.9); Platelet Count 204 K/mcL (140-400); Red Cell Distribution Width 12.8 % (11.5-14.5); Segmented Neutrophils % 75.8 %
[2018-08-15] MEDS ORDERED: Prenatal Vit/FA 1 EACH TABLET PO SCH ×3 (09:00)
[2018-08-15] MEDS: Ringers Solution, Lactated 1,000 ML IVC SCH (09:39)
[2018-08-15] MEDS ORDERED: Ringers Solution, Lactated 1,000 ML ONE (09:39)
[2018-08-15] MEDS ORDERED: Lidocaine -MPF 2% 2 ML VIAL ONE (11:25)
[2018-08-15] MEDS ORDERED: *HR* Succinylcholine 200 MG/10 ML VIAL IVP ONE (11:25)
[2018-08-15] MEDS ORDERED: *HR* FentaNYL (PF) 100 MCG/2 ML VIAL ONE (11:25)
[2018-08-15] MEDS ORDERED: *HR* Propofol 200 MG/20 ML VIAL IVP ONE ×2 (11:25→12:45)
[2018-08-15] MEDS ORDERED: *HR* Rocuronium Bromide 50 MG/5 ML VIAL ONE (11:25)
[2018-08-15] MEDS ORDERED: Lidocaine -MPF 4% 5 ML AMPUL ONE (11:25)
[2018-08-15] MEDS ORDERED: *HR* Midazolam HCl 2 MG/2 ML VIAL ONE ×3 (11:25→13:20)
--- NOTE | 2018-08-15 11:26 | Anesthesia Evaluation PreOp ---
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: Denies Any Significant HX Other Medical History: Other (morbid obesity) Anesthesia History: Past Anesthesia (denies prior GA, no family history GA problems) : No (dleivered 1-20) Alcohol Use: none Drug use: none Medications and Allergies Vit/FA 1 each PO DAILY tab 02/25/17 [Rx] Allergy/AdvReac Type Severity Reaction Status Date / Time No Known Allergies Allergy Verified 06/19/18 18:57 - Meds/Allergy Pre-op Review Medications Reviewed: Yes Allergies Reviewed: Yes Beta Blockers on Current Med List: No Anesthesia Results - Labs 08/15/18 06:08 Anesthesia Exam Selected Entries 08/15/18 07:37 Temperature 98.1 F Respiratory Rate 16 Blood Pressure 115/77 O2 Sat by Pulse Oximetry 97 Oxygen Delivery Method Room Air Weight: 96kg BMI 39 NPO (# of Hours): 8 - HEENT Pupil (Motor): EOMI Mallampati: III Teeth: Normal Oral Opening: Greater than 3 - REFRIGERATION INSULATOR LOC: Oriented REFRIGERATION INSULATOR Motor: Normal RUE, Normal LUE, Normal RLE, Normal LLE, Normal Face REFRIGERATION INSULATOR Sensory: Normal: RUE, LUE, RLE, LLE, Face - Cardiac Rhythm: Regular Murmur: None - Pulmonary Breath Sounds: bilateral Clear Respiratory Effort: Symmetrical Anesthesia Assess/Plan ASA Score: 3 Level of consciousness: Cooperative, Oriented Anesthetic Plan: General, Epidural (catheter still in place. Patient wants us to use this, Is okay to do GA in the event it doesn't work) Recovery Plan: PACU
[2018-08-15] MEDS ORDERED: Chloroprocaine/PF 20 ML VIAL INFILT ONE (11:51)
--- NOTE | 2018-08-15 12:21 | History & Physical Report ---
Date of Encounter: 08/15/18 Time of Encounter: 12:20 24 Hour HP Update - Instructions Instructions: If the History and Physical is less than 30 days old and was completed prior to A.M. admission and or procedure and has NOT been updated on calendar day of procedure please complete this update prior to performing procedure. - Update Patient reports changes in Medical Condition: No Changes in examination, assessment, or condition: No Changes in Medication: No Preop tests/diagnostics Reviewed: Yes Surgery Remains Indicated: Yes Consent for Planned Operative Procedure(s) Verified: Yes - Pre-Operative Checklist Preoperative Checklist Indicated: Yes Prophylactic Antibiotic Ordered: Yes Home Medications Include Beta Aide: No Beta Aide Taken Today (Day of Surgery): No Beta Aide Taken Yesterday (Day Prior to Surgery): No Is VTE Prophylaxis Indicated?: Yes
[2018-08-15] MEDS ORDERED: CeFAZolin Premix DUPLEX 2,000 MG/50 ML BAG IVPB ONE (12:33)
[2018-08-15] MEDS ORDERED: Bupivacaine/EPI 1:200k 0.25%PF 30 ML VIAL ONE (12:43)
[2018-08-15] MEDS ORDERED: Lidocaine -MPF 2% 5 ML VIAL ONE (12:43)
[2018-08-15] MEDS ORDERED: Lidocaine/EPI 1:100k 2% 20 ML VIAL ONE (12:44)
[2018-08-15] MEDS ORDERED: Water for inj. (sterile) 10 ML IV ONE (12:55)
--- NOTE | 2018-08-15 13:44 | OB/GYN Procedure Note ---
OB-ACCOUNT MANAGER B2B: Procedure - Diagnosis Date of procedure: 08/15/18 Pre-op diagnosis: Multiparity desires permanent sterilization Post-op diagnosis: same - Procedure Procedure: Modified [place] bilateral partial salpingectomy Surgeon: Raad Dodson Was there an printing bindery assistant present: Yes Senior Technical Business Analyst: Anai Santa Anesthesia Type: General Estimated blood loss (cc): 10 Fluids: crystalloid Procedure Complications: None Specimens collected: Bilateral tubal segments including the fimbria bilaterally Disposition: PACU Findings: Normal fallopian tubes bilaterally Narrative: Patient's 32-year-old multiparous female status post vaginal delivery last evening expressed desire permanent sterilization. She is aware operative risks and signed appropriate consent. Description procedure: Patient was taken operating room where epidural anesthesia was dosed. She was prepped draped in usual sterile fashion bladder drained clear urine. Scalp was used to make an incision below the umbilicus was sharply taken down the fascia. Fascia was incised midline fascial incision was extended bilaterally. Peritoneum was entered sharply. Uterus was identified and followed out to the left fallopian tube pulled the left fallopian tube out tied off the distal 4 cm to left fallopian tube this was double ligated with oh plain catgut suture. This was then transected and free ends were hemostatic. Right fallopian tube was identified also followed out to its fimbriated end approximate 4 similar segment of the right fallopian tube was double ligated removing the distal tube and fimbriated end. Again hemostasis was ensured. This point fascia was reapproximated with 0 Vicryl skin edges reapproximated with 4-0 Vicryl all sponge and counts are correct patient taken recovery in good condition.
[2018-08-15] MEDS: *HR* HYDROcodone/Acet 5/325 mg TABLET PO PRN ×2 (14:30→19:02)
[2018-08-16] MEDS: Ibuprofen 600 MG TABLET PO PRN ×2 (00:13→06:09)
[2018-08-16] MEDS: *HR* HYDROcodone/Acet 5/325 mg TABLET PO PRN (04:35)
[2018-08-16 08:01] VITALS: BP 121/82
[2018-08-16] MEDS ORDERED: Prenatal Vit/FA 1 EACH TABLET PO SCH (09:00)
--- NOTE | 2018-08-16 09:51 | Discharge Summary ---
Date of Encounter: 08/16/18 Time of Encounter: 09:41 - Discharge Diagnosis (1) Vaginal delivery Priority: Primary Status: Acute Comments: Meeting all milestones, pain well managed, tolerates po diet, bottle feeding, desires discharge. - Discharge Medications Prescriptions: HYDROcodone/Acet 5/325 mg [Fabens 5-325 mg] 1 tab PO Q4HR PRN 2 Days #5 tablet PRN Reason: Moderate to Severe Pain Docusate [Colace] 100 mg PO BID #30 capsule Ibuprofen [Motrin] 600 mg PO Q6H PRN #60 tablet PRN Reason: Cramping Home Medications: Vit/FA 1 each PO DAILY tab 02/25/17 [Rx] Acetaminophen [Tylenol] 650 mg PO Q6HR PRN tablet 08/16/18 [Rx] Docusate [Colace] 100 mg PO BID #30 capsule 08/16/18 [Rx] HYDROcodone/Acet 5/325 mg [Fabens 5-325 mg] 1 tab PO Q4HR PRN 2 Days #5 tablet 08/16/18 [Rx] Ibuprofen [Motrin] 600 mg PO Q6H PRN #60 tablet 08/16/18 [Rx] Allergies/Adverse Reactions: Allergy/AdvReac Type Severity Reaction Status Date / Time No Known Allergies Allergy Verified 06/19/18 18:57 Data Procedures and tests throughout hospitalization: Laboratory Tests 08/14/18 08/14/18 08/14/18 15:23 15:23 16:18 WBC 8.3 RBC 3.75 L Hgb 12.6 Hct 36.3 MCV 96.8 MCH 33.6 H MCHC 34.7 RDW 13.1 Plt Count 283 MPV 10.0 Immature Gran % 0.2 Seg Neutrophils % 71.4 Lymphocytes % 20.2 Monocytes % 7.5 Eosinophils % 0.5 Basophils % 0.2 Neutrophils # 5.9 Lymphocytes # 1.7 Monocytes # 0.6 Eosinophils # 0.0 Basophils # 0.0 Urine Color Dark Yellow Urine Clarity Cloudy A Urine pH 6.0 Ur Specific Chancellor 1.026 H Urine Protein 30 H Urine Glucose (UA) Normal Urine Ketones Trace H Urine Blood Negative Urine Nitrite Negative Urine Bilirubin Small H Urine Urobilinogen Normal Ur Leukocyte Esterase Moderate H Urine Microscopic RBC 0-3 Urine Microscopic WBC 30-50 H Ur Squamous Epith Cells Many H Calcium Oxalate Crystal Present Urine Bacteria Many H Hyaline Casts Few Ur Culture Indicated? NO. A Urine Opiates Screen Negative Ur Barbiturates Screen Negative Ur Phencyclidine Scrn Negative Ur Amphetamines Screen Negative U Benzodiazepines Scrn Negative Urine Cocaine Screen Negative U Marijuana (THC) Screen Negative Ur Drug Screen Interp See Below Hep Bs Antigen 08/14/18 08/15/18 16:28 06:08 WBC 11.7 H RBC 3.60 L Hgb 12.1 Hct 34.4 L MCV 95.6 MCH 33.6 H MCHC 35.2 RDW 12.8 Plt Count 204 MPV 10.2 Immature Gran % 0.3 Seg Neutrophils % 75.8 Lymphocytes % 16.6 Monocytes % 6.8 Eosinophils % 0.3 Basophils % 0.2 Neutrophils # 8.9 Lymphocytes # 1.9 Monocytes # 0.8 Eosinophils # 0.0 Basophils # 0.0 Urine Color Urine Clarity Urine pH Ur Specific Chancellor Urine Protein Urine Glucose (UA) Urine Ketones Urine Blood Urine Nitrite Urine Bilirubin Urine Urobilinogen Ur Leukocyte Esterase Urine Microscopic RBC Urine Microscopic WBC Ur Squamous Epith Cells Calcium Oxalate Crystal Urine Bacteria Hyaline Casts Ur Culture Indicated? Urine Opiates Screen Ur Barbiturates Screen Ur Phencyclidine Scrn Ur Amphetamines Screen U Benzodiazepines Scrn Urine Cocaine Screen U Marijuana (THC) Screen Ur Drug Screen Interp Hep Bs Antigen Nonreactive Date of admission: 08/14/18 15:11 Primary care physician: PCP NONE Discharging clinician: Sophia Flores Anticipated date of discharge: 08/16/18 - Patient Status Disposition: Home, Self-Care Condition: Good Functional capacity at discharge: independent ambulation Overall status at discharge: patient is back to baseline - Discharge Instructions Follow Up With: NONE,PCP [Primary Care Provider] - Raad Dodson MD [Partnered Physician] - - Diet and Activity Activity: resume usual activities as tolerated Diet: regular diet Hospital Course Reason for admission: active labor Delivery: Episiotomy: none Laceration: none Other procedures: tubal ligation complications: none Discharge diagnosis: IUP at term delivered baby: female Hospital course: Delivery - Delivery Date: 08/15/18 Provider: Raad Dodson Intrapartum events: none Delivery augmentation: rupture of membranes Delivery monitor: external uterine, internal uterine Anesthesia: epidural Quantitated Blood Loss: 50 - (s) Infant A Infant Delivery Date: 08/14/18 Delivery Time: 23:44 Presentation: vertex Position: BRENDEN Route of delivery: Gender: Female Viability: Viable Pounds: 7 Ounces: 0 at 1 minute: 8 at 5 mins: 9 Shoulder Dystocia: not encountered Specimens collected: cord blood Placenta: spontaneous Cord: 3 umbilical vessels, nuchal reduced - Repair Episiotomy: none - Complications Delivery complications: none - Disposition Mom disposition: stable in PP and appropriate for discharge Time Attestation: Total time spent providing and/or coordinating discharge services: Time Spent: Less than 30 minutes Exam - Constitutional Vitals: Temp Pulse Resp BP Pulse Ox 98.1 F 66 16 121/82 96 08/16/18 07:59 08/16/18 07:59 08/16/18 07:59 08/16/18 07:59 08/16/18 07:59 General appearance IM: A&O X 3 - Respiratory Respiratory exam: Present: CTAB - Cardiovascular Cardiovascular exam IM: Present: RRR - GI/Abdominal GI/Abdominal exam IM: normal bowel sounds, soft Incision: dry, intact - Uterine Tone: Firm Uterus Position: At Umbilicus - Extremities Exam Extremities exam IM: Present: normal capillary refill, pedal edema - Neurological Exam Neurological exam: normal gait, oriented X3 - Psychiatric Additional comments: reports good mood
== END 2018-08-16 11:45 | disposition home or self-care (01) | DRG 798 ==
LOC: 1NENULAB → 1NENUOBS 08-15 02:40
PROVIDERS: ADMIT Obstetrics & Gynecology; ATTEND Obstetrics & Gynecology